=== PATIENT | female | born 1960 | race African-American/Black ===

== ENCOUNTER 2022-02-02 13:40 | Inpatient (IN) | payer MEDICARE, OTHER ==
[~2022-02-02] VITALS: Ht 162.6 cm; Wt 136.1 kg
[2022-02-02] MEDS ORDERED: SODIUM CHLORIDE 0.9% 1000ML 1,000 ML IV STA ×3 (13:49→15:18)
[2022-02-02] MEDS ORDERED: ONDANSETRON HCL INJ 2MG/ML 2ML 2 MG/ML VIAL IV STA (13:53)
[2022-02-02 13:59] LABS: BASOPHILS # (AUTO) 0.1 (0.0-0.1); BASOPHILS % 0.3 % (0.0-1.0); HEMATOCRIT 35.3 % (34.2-44.1); HEMOGLOBIN 11.1 g/dL (12.0-16.0); LYMPHOCYTES # (AUTO) 2.2 (1.0-3.2); LYMPHOCYTES % 9.2 % (18.0-39.1); MEAN CORPUSCULAR HEMOGLOBIN 31.5 pg (28-32); MEAN CORPUSCULAR HGB CONC 31.4 g/dL (31-35); MEAN CORPUSCULAR VOLUME 100.3 fL (81-99); MONOCYTES % 4.3 % (4.4-11.3); NEUTROPHILS # (AUTO) 19.9 (2.1-6.9); NEUTROPHILS % 82.8 % (38.7-80.0); PLATELET COUNT 326 x10e3/uL (140-360); RED BLOOD COUNT 3.52 x10e6/uL (3.6-5.1); RED CELL DISTRIBUTION WIDTH 12.5 % (11.7-14.4)
[2022-02-02 14:17] LABS: ALANINE AMINOTRANSFERASE 16 IU/L (0-55); ALBUMIN 3.3 g/dL (3.5-5.0); ALKALINE PHOSPHATASE 55 IU/L (40-150); ANION GAP 15.8 mmol/L (8-16); BLOOD UREA NITROGEN 48 mg/dL (7-26); BUN/CREATININE RATIO 59 (6-25); CALCIUM 8.9 mg/dL (8.4-10.2); CARBON DIOXIDE 23 mmol/L (22-29); CHLORIDE 106 mmol/L (98-107); CREATINE KINASE 29 IU/L (29-168); CREATININE, SERUM 0.82 mg/dL (0.57-1.11); EST GLOMERULAR FILTRATION RATE 86 ML/MIN (60-); GLUCOSE 218 mg/dL (74-118); POTASSIUM 4.8 mmol/L (3.5-5.1); SODIUM 140 mmol/L (136-145)
[2022-02-02 15:05] LABS: CLARITY,URINE HAZY (CLEAR); COLOR,URINE YELLOW (YELLOW); KETONES,URINE TRACE (NEGATIVE); LEUKOCYTE ESTERASE ,URINE TRACE (NEGATIVE); NITRITE,URINE NEGATIVE (NEGATIVE); PROTEIN,URINE DIPSTICK NEGATIVE (NEGATIVE); URINE UROBILINOGEN 0.2 mg/dL (0.2 - 1)
[2022-02-02 15:10] LABS: AMPHETAMINES SCREEN,URINE NEGATIVE (NEGATIVE); BACTERIA,URINE FEW /HPF; BENZODIAZEPINES SCREEN,URINE NEGATIVE (NEGATIVE); EPITHELIAL CELLS,URINE FEW /LPF; PHENCYCLIDINE SCREEN,URINE NEGATIVE (NEGATIVE); RBC,URINE 0-5 /HPF (0-5); WBC,URINE (MAN) 0-5 /HPF (0-5)
[2022-02-02 15:29] LABS: INR 1.03; PARTIAL THROMBOPLASTIN TIME 19.6 seconds (23.8-35.5); PROTHROMBIN TIME 14.4 seconds (11.9-14.5)
[2022-02-02] MEDS ORDERED: HYDRALAZINE HCL 20 MG/ML VIAL IV PRN (15:45)
[2022-02-02] MEDS ORDERED: SIMETHICONE 80 MG CHEW PO PRN (15:45)
[2022-02-02] MEDS ORDERED: DIPHENHYDRAMINE HCL 25 MG CAP PO PRN (15:45)
[2022-02-02] MEDS ORDERED: MELATONIN 5 MG TABLET PO PRN (15:45)
[2022-02-02] MEDS ORDERED: DEXTROSE 50% SYRINGE 50 ML IV PRN (15:45)
[2022-02-02] MEDS ORDERED: ONDANSETRON HCL INJ 2MG/ML 2ML 2 MG/ML VIAL IV PRN ×2 (15:45→16:00)
[2022-02-02] MEDS ORDERED: LIDOCAINE 4% PATCH TP PRN (15:45)
[2022-02-02] MEDS ORDERED: POTASSIUM CHLORIDE 20 MEQ TAB CR PO PRN (15:45)
[2022-02-02] MEDS ORDERED: BENZONATATE 100 MG CAP PO PRN (15:45)
[2022-02-02] MEDS ORDERED: Morphine 2mg Syringe 2 MG/ML SYR IV PRN (16:00)
[2022-02-02] MEDS ORDERED: SODIUM CHLORIDE 0.9% 1000ML 1,000 ML IV SCH ×2 (16:00)
[2022-02-02] MEDS ORDERED: GABAPENTIN300 MG PO (18:37)
[2022-02-02] MEDS ORDERED: SYMBICORT 16010.2 GM INH (18:37)
[2022-02-02] MEDS ORDERED: AMLODIPINE BESY10 MG PO (18:37)
[2022-02-02] MEDS ORDERED: PREDNISONE20 MG PO (18:37)
[2022-02-02] MEDS ORDERED: CHLORDIAZEPOXI1 EACH PO (18:37)
[2022-02-02] MEDS ORDERED: VENTOLIN HFA18 GM INH (18:37)
[2022-02-02] MEDS ORDERED: MELOXICAM7.5 MG PO (18:37)
[2022-02-02] MEDS ORDERED: ALBUTEROL SULFATE HFA 8GM INHALATION AEROSOL INH PRN (19:00)
[2022-02-02] MEDS: ENOXAPARIN SOD INJ 40 MG/0.4 ML SYR SC SCH (19:21)
[2022-02-02 20:00] VITALS: BP 141/86
[2022-02-02] MEDS: ALBUTEROL/IPRATROPIUM 3 ML NEB NEB PRN (21:36)
[2022-02-02] MEDS: SODIUM CHLORIDE 0.9% 1000ML 1,000 ML IV SCH (23:21)
[2022-02-02] MEDS: ACETAMINOPHEN 325 MG TAB PO PRN (23:52)
[2022-02-03] VITALS (8 sets, daily range): BP systolic 95–134; BP diastolic 53–81
[2022-02-03] MEDS: ALBUTEROL/IPRATROPIUM 3 ML NEB NEB PRN ×2 (01:10→07:00)
[2022-02-03] MEDS: SODIUM CHLORIDE 0.9% 1000ML 1,000 ML IV SCH ×2 (02:15→12:18)
[2022-02-03 06:48] LABS: BASOPHILS # (AUTO) 0.1 (0.0-0.1); BASOPHILS % 0.4 % (0.0-1.0); EOSINOPHILS # (AUTO) 0.1 (0.0-0.4); EOSINOPHILS % 0.3 % (0.0-6.0); HEMATOCRIT 25.9 % (34.2-44.1); LYMPHOCYTES # (AUTO) 6.5 (1.0-3.2); LYMPHOCYTES % 31.7 % (18.0-39.1); MEAN CORPUSCULAR HGB CONC 30.9 g/dL (31-35); MEAN CORPUSCULAR VOLUME 103.6 fL (81-99); MONOCYTES # (AUTO) 1.2 (0.2-0.8); MONOCYTES % 5.7 % (4.4-11.3); NEUTROPHILS # (AUTO) 12.3 (2.1-6.9); NEUTROPHILS % 59.8 % (38.7-80.0); PLATELET COUNT 265 x10e3/uL (140-360); RED CELL DISTRIBUTION WIDTH 12.5 % (11.7-14.4)
[2022-02-03 07:15] LABS: ANION GAP 9.5 mmol/L (8-16); CALCIUM 7.8 mg/dL (8.4-10.2); CHOL/HDL RATIO 4.2 (3.0-3.6); CREATININE, SERUM 0.81 mg/dL (0.57-1.11); MAGNESIUM 1.7 MG/DL (1.3-2.1); POTASSIUM 3.5 mmol/L (3.5-5.1)
[2022-02-03 07:25] LABS: THYROID STIMULATING HORMONE 1.559 uIU/mL (0.350-4.940)
[2022-02-03] MEDS: ACETAMINOPHEN 325 MG TAB PO PRN ×2 (07:25→15:09)
[2022-02-03 07:29] LABS: ANISOCYTOSIS SLIGHT; LYMPHOCYTES % (MANUAL) 30 % (19-48); MONOCYTES % (MANUAL) 5 % (3.4-9.0); MYELOCYTES % (MANUAL) 1 % (0-0); NEUTROPHILS % (MANUAL) 64 % (40-74); PLATELET ESTIMATE ADEQUATE; PLATELET MORPHOLOGY COMMENT NORMAL; RBC MORPHOLOGY COMMENT NORMAL
[2022-02-03 07:30] LABS: POLYCHROMASIA SL
[2022-02-03] MEDS: PANTOPRAZOLE SOD 40 MG TABEC PO SCH ×2 (08:57→09:01)
[2022-02-03] MEDS: BUDESONIDE/FORMOTEROL 160/4.5MCG INHALER INH SCH (09:00)
[2022-02-03] MEDS ORDERED: MECLIZINE HCL 12.5 MG TAB PO PRN (15:00)
[2022-02-03] MEDS ORDERED: SCOPOLAMINE 1.3 MG PATCH TOP ONE (15:30)
[2022-02-03] MEDS: METOPROLOL TARTRATE 50 MG TAB PO SCH (17:00)
[2022-02-03] MEDS: APIXABAN 5 MG TABLET PO SCH (17:00)
[2022-02-03] MEDS: ENOXAPARIN SOD INJ 40 MG/0.4 ML SYR SC SCH (17:25)
[2022-02-04] VITALS (8 sets, daily range): BP systolic 100–140; BP diastolic 50–80
[2022-02-04] MEDS ORDERED: AMLODIPINE BESYLATE 10 MG TAB PO SCH (09:00)
[2022-02-04] MEDS: BUDESONIDE/FORMOTEROL 160/4.5MCG INHALER INH SCH (09:00)
[2022-02-04] MEDS: METOPROLOL TARTRATE 50 MG TAB PO SCH (09:00)
[2022-02-04] MEDS: APIXABAN 5 MG TABLET PO SCH ×2 (09:47→17:53)
[2022-02-04 14:39] LABS: BASOPHILS # (AUTO) 0.1 (0.0-0.1); BASOPHILS % 0.3 % (0.0-1.0); EOSINOPHILS # (AUTO) 0.2 (0.0-0.4); EOSINOPHILS % 1.4 % (0.0-6.0); HEMATOCRIT 24.6 % (34.2-44.1); HEMOGLOBIN 7.7 g/dL (12.0-16.0); LYMPHOCYTES # (AUTO) 5.3 (1.0-3.2); LYMPHOCYTES % 33.3 % (18.0-39.1); MEAN CORPUSCULAR HEMOGLOBIN 32.2 pg (28-32); MEAN CORPUSCULAR HGB CONC 31.3 g/dL (31-35); MEAN CORPUSCULAR VOLUME 102.9 fL (81-99); MONOCYTES # (AUTO) 1.1 (0.2-0.8); MONOCYTES % 6.6 % (4.4-11.3); NEUTROPHILS # (AUTO) 9.1 (2.1-6.9); NEUTROPHILS % 56.4 % (38.7-80.0); PLATELET COUNT 268 x10e3/uL (140-360); RED BLOOD COUNT 2.39 x10e6/uL (3.6-5.1)
[2022-02-04 15:01] LABS: ANION GAP 11.9 mmol/L (8-16); CALCIUM 8.8 mg/dL (8.4-10.2); CREATININE, SERUM 0.79 mg/dL (0.57-1.11); POTASSIUM 3.9 mmol/L (3.5-5.1)
[2022-02-04] MEDS: METOPROLOL TARTRATE 25 MG TAB PO SCH (17:53)
[2022-02-04] MEDS: ACETAMINOPHEN 325 MG TAB PO PRN (19:56)
[2022-02-05] VITALS (8 sets, daily range): BP systolic 105–134; BP diastolic 47–61
[2022-02-05] MEDS: ACETAMINOPHEN 325 MG TAB PO PRN ×4 (01:08→23:57)
[2022-02-05 06:12] LABS: BASOPHILS % 0.3 % (0.0-1.0); EOSINOPHILS # (AUTO) 0.2 (0.0-0.4); EOSINOPHILS % 1.8 % (0.0-6.0); HEMATOCRIT 23.9 % (34.2-44.1); HEMOGLOBIN 7.4 g/dL (12.0-16.0); LYMPHOCYTES # (AUTO) 4.6 (1.0-3.2); LYMPHOCYTES % 36.1 % (18.0-39.1); MEAN CORPUSCULAR VOLUME 103.5 fL (81-99); MONOCYTES # (AUTO) 0.9 (0.2-0.8); NEUTROPHILS # (AUTO) 6.8 (2.1-6.9); NEUTROPHILS % 52.9 % (38.7-80.0); PLATELET COUNT 249 x10e3/uL (140-360); RED BLOOD COUNT 2.31 x10e6/uL (3.6-5.1); RED CELL DISTRIBUTION WIDTH 12.9 % (11.7-14.4)
[2022-02-05 06:26] LABS: ANION GAP 9.9 mmol/L (8-16); CALCIUM 8.4 mg/dL (8.4-10.2); CREATININE, SERUM 0.77 mg/dL (0.57-1.11); POTASSIUM 3.9 mmol/L (3.5-5.1)
[2022-02-05] MEDS: BUDESONIDE/FORMOTEROL 160/4.5MCG INHALER INH SCH (07:57)
[2022-02-05] MEDS: PANTOPRAZOLE SOD 40 MG TABEC PO SCH (08:25)
[2022-02-05] MEDS: APIXABAN 5 MG TABLET PO SCH (09:15)
[2022-02-05] MEDS: METOPROLOL TARTRATE 25 MG TAB PO SCH ×2 (09:16→17:33)
[2022-02-05] MEDS: DOCUSATE SODIUM 100 MG CAP PO PRN ×2 (09:50→23:57)
[2022-02-06] VITALS: BP 102/50
[2022-02-06 01:26] LABS: % IRON SATURATION 16 % (15-50); IRON 56 ug/dL (50-170); TOTAL IRON BINDING CAPACITY 349 ug/dL (261-478); TRANSFERRIN 249 mg/dL (180-382)
[2022-02-06 05:02] LABS: BASOPHILS % 0.3 % (0.0-1.0); EOSINOPHILS # (AUTO) 0.2 (0.0-0.4); EOSINOPHILS % 2.1 % (0.0-6.0); HEMATOCRIT 23.4 % (34.2-44.1); LYMPHOCYTES # (AUTO) 3.4 (1.0-3.2); LYMPHOCYTES % 34.8 % (18.0-39.1); MEAN CORPUSCULAR HEMOGLOBIN 31.8 pg (28-32); MEAN CORPUSCULAR HGB CONC 29.9 g/dL (31-35); MEAN CORPUSCULAR VOLUME 106.4 fL (81-99); MONOCYTES # (AUTO) 0.7 (0.2-0.8); MONOCYTES % 7.2 % (4.4-11.3); NEUTROPHILS # (AUTO) 5.3 (2.1-6.9); NEUTROPHILS % 54.2 % (38.7-80.0); PLATELET COUNT 262 x10e3/uL (140-360); RED CELL DISTRIBUTION WIDTH 13.5 % (11.7-14.4)
[2022-02-06 05:49] LABS: ANION GAP 9.3 mmol/L (8-16); CALCIUM 8.4 mg/dL (8.4-10.2); CREATININE, SERUM 0.77 mg/dL (0.57-1.11); POTASSIUM 4.3 mmol/L (3.5-5.1)
[2022-02-06] MEDS: BUDESONIDE/FORMOTEROL 160/4.5MCG INHALER INH SCH ×2 (07:18→20:56)
[2022-02-06 07:45] VITALS: BP 110/77
[2022-02-06 08:06] VITALS: BP 110/77
[2022-02-06] MEDS: METOPROLOL TARTRATE 25 MG TAB PO SCH ×2 (08:15→17:18)
[2022-02-06] MEDS: ACETAMINOPHEN 325 MG TAB PO PRN ×2 (08:15→18:30)
[2022-02-06] MEDS: PANTOPRAZOLE SOD 40 MG TABEC PO SCH (08:15)
[2022-02-06] MEDS: AMLODIPINE BESYLATE 5 MG TAB PO SCH (08:16)
[2022-02-06] MEDS ORDERED: FENTANYL CITRATE/PF 100MCG/2 ML INJ ONE (12:48)
[2022-02-06] MEDS ORDERED: MIDAZOLAM HCL 2 MG/2 ML VIAL ONE (12:48)
[2022-02-06] MEDS ORDERED: SODIUM CHLORIDE 0.9% 250ML 250 ML IV ONE (13:15)
[2022-02-06] MEDS ORDERED: LIDOCAINE HCL 2% LOCAL INJ 5 ML SDV VIAL INJ ONE (13:33)
[2022-02-06] MEDS ORDERED: PROPOFOL IV EMULSION 10 MG/ML 20 ML VIAL ONE (13:33)
[2022-02-06 16:07] VITALS: BP 104/67
[2022-02-06 20:00] VITALS: BP 99/60
[2022-02-06] MEDS ORDERED: SODIUM CHLORIDE 0.9% 250ML 250 ML ONE (20:18)
[2022-02-06 20:28] VITALS: BP 99/60
[2022-02-07] VITALS: BP 111/75
[2022-02-07] MEDS ORDERED: SODIUM CHLORIDE 0.9% 250ML 250 ML ONE (01:55)
[2022-02-07] MEDS: ACETAMINOPHEN 325 MG TAB PO PRN (02:47)
[2022-02-07 04:00] VITALS: BP 92/75
[2022-02-07] MEDS: BUDESONIDE/FORMOTEROL 160/4.5MCG INHALER INH SCH (06:31)
[2022-02-07] MEDS: PANTOPRAZOLE SOD 40 MG TABEC PO SCH (07:30)
[2022-02-07 07:38] VITALS: BP 123/67
[2022-02-07 08:07] VITALS: BP_SYST 123
[2022-02-07 08:51] LABS: HEMATOCRIT 33.3 % (34.2-44.1); HEMOGLOBIN 10.4 g/dL (12.0-16.0)
[2022-02-07] MEDS: AMLODIPINE BESYLATE 5 MG TAB PO SCH (09:00)
[2022-02-07] MEDS: METOPROLOL TARTRATE 25 MG TAB PO SCH (09:00)
[2022-02-07 09:11] LABS: CALCIUM 8.4 mg/dL (8.4-10.2); CREATININE, SERUM 0.76 mg/dL (0.57-1.11)
[2022-02-07 11:56] VITALS: BP 92/64
== END 2022-02-07 16:42 | disposition home or self-care (01) | DRG 378 ==
LOC: ER 14:00 → ERHOLD 15:45 → MED/SURG3 18:08
PROVIDERS: ADMIT Internal Medicine; ATTEND Internal Medicine
PROC: 0DB68ZX Excision of Stomach, Via Natural or Artificial Opening Endoscopic, Diagnostic (ICD-10-PCS; 2022-02-06)
PROC: 30233N1 Transfusion of Nonautologous Red Blood Cells into Peripheral Vein, Percutaneous Approach (ICD-10-PCS; 2022-02-06)
PROC: 0DB98ZX Excision of Duodenum, Via Natural or Artificial Opening Endoscopic, Diagnostic (ICD-10-PCS; principal; 2022-02-06 11:20)
DX: K25.4 Chronic or unspecified gastric ulcer with hemorrhage (principal); Z68.43 Body mass index [BMI] 50.0-59.9, adult; K29.51 Unspecified chronic gastritis with bleeding; F14.10 Cocaine abuse, uncomplicated; K20.90 Esophagitis, unspecified without bleeding; F12.90 Cannabis use, unspecified, uncomplicated; R55 Syncope and collapse; I10 Essential (primary) hypertension; J44.9 Chronic obstructive pulmonary disease, unspecified; F17.200 Nicotine dependence, unspecified, uncomplicated; E66.9 Obesity, unspecified; D50.0 Iron deficiency anemia secondary to blood loss (chronic); G89.4 Chronic pain syndrome; K44.9 Diaphragmatic hernia without obstruction or gangrene; Z91.81 History of falling; Z91.19 Patient's noncompliance with other medical treatment and regimen; I48.0 Paroxysmal atrial fibrillation; G47.30 Sleep apnea, unspecified; R42 Dizziness and giddiness; D72.829 Elevated white blood cell count, unspecified; Z79.52 Long term (current) use of systemic steroids; K63.89 Other specified diseases of intestine; Z20.822 Contact with and (suspected) exposure to COVID-19
CPT/HCPCS: 36415; 43239; 70450; 71045; 80048; 80053; 80061; 80307; 81001; 82550; 82553; 82607; 82746; 82948; 83036; 83540; 83605; 83735; 83880; 84443; 84466; 84484; 85014; 85018; 85025; 85045; 85610; 85730; 86850; 86900; 86920; 87040; 87086; 88305; 88312; 93005; 93306; 93880; 94640; 94799; 96361; 99284; J0692; J0696; J1650; J2001; J2250; J2405; J3010; J7030; J7050; P9016; U0002